=== PATIENT | male | born 1945 | race American Indian/Alaskan Native ===

== ENCOUNTER 2020-11-17 17:44 | Emergency (ER) | payer MEDICARE ==
[~2020-11-17 17:44] MED LIST: CALCIUM CHLORIDE 1,000 MG/10 ML SYRINGE IV ONE; EPINEPHrine 1 MG/10 ML SYRINGE ONE; SODIUM BICARB 8.4% 50 MEQ/50 ML SYRINGE IV ONE
--- NOTE | 2020-11-17 18:10 | Emergency Department Report ---
ED CPR HPI - General Chief Complaint: Cardiac Arrest/CPR Stated Complaint: CARDIAC ARREST Time Seen by Provider: 11/17/20 18:01 Source: EMS Mode of arrival: Stretcher Limitations: Physical Limitation (Cardiac arrest), Other - History of Present Illness Initial Comments: CC: cardiac arrest HPI: This is a 75 yo male with hx of HTN, DM, hyperlipidemia who presents in cardiac arrest. Hx obtained from , daughter, and EMS. Patient became ill several days ago. He seemed weak. He had poor appetite. urged him to go to the hospital on Tuesday He declined. His daughter took him to her home in order to assist with his care. Today, patient became unresponsive with abnormal breathing. Upon paramedics arrival, patient did not have a pulse. Rhythm: asystole. Patient was intubated with 7-0 ETT with capnography confirmation. Patient received 3 doses of epinephrine. Patient was followed by Dr. Galicia at [place]. He is not been hospitalized recently. He is very independent. MD Complaint: found unresponsive, stopped breathing Place: home Bystander CPR Performed: No Downtime Before ACLS Arrival (mins): 5 Initial Findings in the Field: unresponsive, no respirations ROSC in the Field: Yes Associated Injuries: No Associated Symptoms: shortness of breath Treatments Prior to Arrival: intubation, chest compressions, epinephrine mgs # (3 doses of epinephrine) - Related Data Allergies Allergy/AdvReac Type Severity Reaction Status Date / Time Unable to Assess Allergy Unverified 11/17/20 17:55 ED Review of Systems ROS: Stated complaint: CARDIAC ARREST Other details as noted in HPI Comment: Unobtainable due to pts medical conditions (Cardiac arrest) ED Past Medical Hx - Past Medical History Previous Medical History?: Yes Hx Hypertension: Yes Hx Diabetes: Yes Additional medical history: Hyperlipidemia - Surgical History Additional Surgical History: No recent surgeries - Social History Smoking Status: Former Smoker ED Physical Exam - General Limitations: Other (Lifeless ETT in place no spontaneous movement) General appearance: other (Eyes open no blinking dried corneas) - Head Head exam: Present: atraumatic, normocephalic - Eye Eye exam: Present: other (Fixed dilated pupils no blinking eyes open dry corneas) - ENT ENT exam: Present: other (ETT in place, pale mucosa) - Neck Neck exam: Present: normal inspection - Respiratory Respiratory exam: Present: other (Equal breath sounds with ventilation through ETT and Ambu bag). Absent: wheezes, rales, rhonchi - Cardiovascular Cardiovascular Exam: Present: other (No palpable pulse no auscultated cardiac sounds) - GI/Abdominal GI/Abdominal exam: Present: soft. Absent: distended - Extremities Exam Extremities exam: Present: normal inspection - Neurological Exam Neurological exam: Present: other (No spontaneous movement) - Psychiatric Psychiatric exam: Present: other (No response to painful stimuli) - Skin Skin exam: Present: intact, pallor, other (Cool to touch) ED Medical Decision Making - Medical Decision Making Cardiac arrest: ROSC achieved in the field. Upon patient's arrival, I was unable to palpate a pulse. PEA ACLS algorithm instituted with 1 additional dose of epinephrine, calcium and sodium bicarbonate each. Placement was placed on mechanical ventilation. I had extensive conversation with and daughter. They understand the likelihood of . We spoke about patient's end-of-life wishes. Daughter was certain that he had taken his last breath. and daughter agreed that natural would be the right course of action. Asystole recurred shortly after conversation. Time of 1818 patient Critical Care Time: Yes Critical care time in (mins) excluding proc time.: 40 Critical care attestation.: If time is entered above; I have spent that time in minutes in the direct care of this critically ill patient, excluding procedure time. 40 minutes of critical care time excluding procedures were used in the care of t he patient. Prior to patient's arrival, communicated plan of care with nursing team and respiratory therapist. Upon patient's arrival respiratory therapist and nursing team were available in the resuscitation room to meet patient upon arrival. I obtained history from EMS at the bedside. We immediately began resuscitation. I spoke with daughter and upon arrival about plan of care and patient's end-of-life wishes. I brought and daughter to the bedside to be with their loved one. Patient required multiple interventions and reassessments. ED Disposition Clinical Impression: Cardiac arrest Disposition: DC-20 Is pt being admited?: No Does the pt Need Aspirin: No Time of Disposition: 18:18
== END 2020-11-18 00:10 ==
LOC: ED 17:44
DX: I46.9 Cardiac arrest, cause unspecified (principal); I10 Essential (primary) hypertension; E11.9 Type 2 diabetes mellitus without complications; Z87.891 Personal history of nicotine dependence
CPT/HCPCS: 99291; J0171